=== PATIENT | female | born 1985 | race Caucasian/White ===

== ENCOUNTER 2023-05-01 17:51 | Emergency (ER) | payer OTHER, SELFPAY ==
--- NOTE | ~2023-05-01 | US_ITS ---
EXAMINATION: US PELVIS CLINICAL INFORMATION: Pelvic pain. COMPARISON: Correlation made with CT performed the same day. TECHNIQUE: Ultrasound of the pelvis is performed using both transabdominal and transvaginal transducers along with Doppler. Transvaginal imaging is performed due to inadequate visualization transabdominally. FINDINGS: Uterus: The uterus is anteverted and measures 9.3 x 4.9 x 6.2 cm. cm. Endometrium measures up to 1.8 cm with a bulbous appearance near the fundus.. The uterus is smooth in contour and has normal myometrial echogenicity. No visible fibroid. Adnexa: Both ovaries are visualized. There is normal color flow to the adnexa. There is no ovarian torsion. There is no pelvic ascites or fluid collection. Right ovary measures 2.6 x 1.8 x 1.9 cm. [Right ovarian volume 4.6 mL. Flow is demonstrated within the right ovary. Left ovary measures 4 x 3.5 x 2.9 cm. Left ovary volume 21.26 mL. Flow demonstrated within the left ovary. There is a 3.1 x 2.2 x 3 cm anechoic structure associated with the left ovary. US/US pelvic ovarian doppler IMPRESSION: Thickened endometrium up to 1.8 cm with a bulbous appearance of the endometrium near the fundus. Consider 3 month follow-up as a polyp or submucosal fibroid is a consideration. 3.1 x 2.2 x 3 cm left ovarian cyst.
--- NOTE | ~2023-05-01 | CT_ITS ---
EXAMINATION: CT ABDOMEN AND PELVIS WITH CONTRAST CLINICAL INFORMATION: Right-sided CVA tenderness, right upper quadrant and right lower quadrant tenderness to palpation, nausea COMPARISON: None available. TECHNIQUE: Multidetector volumetric images were obtained from the superior aspect of the liver through the pubic symphysis following administration 85 mL of Omnipaque 350 intravenous contrast. Sagittal and coronal reformatted images were obtained on the technologist's workstation. Oral contrast: No This CT examination was performed using dose optimization techniques as appropriate, variously including the following: *Automated exposure control *Adjustment of mA and/or kV according to patient size (this includes techniques or standardized protocols for targeted exams where dose is matched to indication/reason for exam; i.e. extremities or head) *Use of iterative reconstruction technique DLP: 473 mGy-cm FINDINGS: LUNG BASES: The visualized lung bases are unremarkable. LIVER, GALLBLADDER, AND BILIARY TREE: The liver is normal in size, shape, and attenuation. No focal hepatic lesion or biliary ductal dilatation is present. The gallbladder is unremarkable with no evidence of radiopaque gallstones, gallbladder wall thickening, or obvious pericholecystic inflammatory changes. PANCREAS: Unremarkable. SPLEEN: Unremarkable. ADRENAL GLANDS: Unremarkable. KIDNEYS AND URETERS: The kidneys are normal in size, shape, and attenuation. No hydronephrosis, hydroureter, or calculi seen. Small 6 mm ovoid hypodensity seen with some even smaller scattered hypodensities in the kidneys most likely represent benign Bosniak class I cysts which need no additional imaging or follow-up. No perinephric stranding. BLADDER: Empty but unremarkable GASTROINTESTINAL TRACT: The small and large bowel are unremarkable aside from colonic diverticula without diverticulitis. The appendix is unremarkable. ABDOMINAL WALL: No significant hernia is appreciated. LYMPH NODES: No retroperitoneal lymphadenopathy. Some minimally prominent left inguinal lymph nodes are seen in the largest measuring only 1 cm in maximal short axis dimension. VASCULAR: Unremarkable. PELVIC VISCERA: An anteverted uterus is present. There is fluid in the endometrial canal. There is a rounded 2.1 x 1.7 x 1.4 cm cystic collection within the endometrial canal. The possibility of a gestational sac should be considered. There is a 3.1 cm left ovarian cyst. Some small cystic areas are seen the largest measuring about 0.8 cm within the myometrium. A 3.1 cm cyst is noted in the left ovary. The right ovary is unremarkable. No free intraperitoneal fluid. OSSEOUS STRUCTURES: Unremarkable. CT/CT abdomen pelvis w IV con IMPRESSION: 1. No renal calculi are seen. 2. There is fluid in the endometrial canal with a rounded cystic collection within the endometrial canal. The possibility of a gestational sac should be considered. This could represent a necrotic sob mucosal fibroid. Transabdominal and endovaginal pelvic ultrasound is recommended for further evaluation. 3. Left ovarian cyst. 4. Colonic diverticulosis without diverticulitis. 5. Other incidental findings as described above. Fleischner guidelines were followed.
--- NOTE | ~2023-05-01 | US_ITS ---
EXAMINATION: US PELVIS CLINICAL INFORMATION: Pelvic pain. COMPARISON: Correlation made with CT performed the same day. TECHNIQUE: Ultrasound of the pelvis is performed using both transabdominal and transvaginal transducers along with Doppler. Transvaginal imaging is performed due to inadequate visualization transabdominally. FINDINGS: Uterus: The uterus is anteverted and measures 9.3 x 4.9 x 6.2 cm. cm. Endometrium measures up to 1.8 cm with a bulbous appearance near the fundus.. The uterus is smooth in contour and has normal myometrial echogenicity. No visible fibroid. Adnexa: Both ovaries are visualized. There is normal color flow to the adnexa. There is no ovarian torsion. There is no pelvic ascites or fluid collection. Right ovary measures 2.6 x 1.8 x 1.9 cm. [Right ovarian volume 4.6 mL. Flow is demonstrated within the right ovary. Left ovary measures 4 x 3.5 x 2.9 cm. Left ovary volume 21.26 mL. Flow demonstrated within the left ovary. There is a 3.1 x 2.2 x 3 cm anechoic structure associated with the left ovary. US/US pelvic and transvaginal IMPRESSION: Thickened endometrium up to 1.8 cm with a bulbous appearance of the endometrium near the fundus. Consider 3 month follow-up as a polyp or submucosal fibroid is a consideration. 3.1 x 2.2 x 3 cm left ovarian cyst.
--- NOTE | 2023-05-01 18:08 | ED_ITS ---
HPI - Abdominal Pain General Chief Complaint: Abdominal Pain Stated Complaint: R side flank pain Time Seen by Provider: 05/01/23 21:56 Source: patient Mode of arrival: ambulatory Limitations: no limitations History of Present Illness HPI narrative: 37 yo female hx of ovarian cysts no prior abdominal surgeries who comes in with c/o R sided R mid abdomen and RLQ pain R flank pain starting early this AM with associated nausea, subj fevers, chills. She has some dysuria. No vaginal discharge. This feels very different from her ovarian cyst issues. She tried motrin at home 3pm but threw it up. She notes it hurts to touch abdomen and move. MD elicited complaint: abdominal pain Pertinent past history: other (ovarian cyst) Onset (ago): hour(s) (since this AM) Pain Consistency: constant Location: RLQ and R flank Severity: moderate Quality: aching Radiation: R flank Migration to: no migration Exacerbating factors: movement Relieving factors: nothing Associated symptoms: nausea, vomiting, fever and chills Related Data Previous Rx's Medication Instructions Recorded ondansetron 4 mg disintegrating 4 mg PO Q8H PRN nausea and 05/02/23 tablet vomiting #20 tabs Allergies Allergy/AdvReac Type Severity Reaction Status Date / Time doxycycline Allergy Dizziness Verified 05/01/23 18:09 Review of Systems Review of Systems Constitutional : No Weight loss, pos Fever, pos Chills ENT/Mouth : No sore throat, No Rhinorrhea Eyes: No Swelling, No Redness Cardiovascular : No Chest Pain, No SOB, NoEdema Respiratory : No Cough, No Sputum, No Wheezing Gastrointestinal : Positive Nausea, Positive Vomiting, positive Diarrhea, positive abdominal Pain, No Hematochezia, No Melena Genitourinary : pos Dysuria, No Urinary Frequency, No Hematuria, No Urgency Musculoskeletal : No joint pain, No Myalgias, No Joint Swelling Skin : No Skin Lesions, No rash Neuro : No Weakness, No Numbness, No Dizziness, No Headache Psych : No Anxiety/Panic, No Depression All other systems reviewed and are negative. [facility] Past Medical History Attestation statement: The following information was validated with the patient. Medical History Ovarian cyst Social History Social History (Updated 05/01/23 @ 22:25 by Humera [place], DO) Alcohol intake: current Alcohol intake frequency: holidays/special occasions only Patient Tobacco Use Status: Tobacco use Unknown Smoked in Last 30 Days: Yes Use of substances other than those prescribed or required for medical reasons: No Advance Directives: No Advance Directives Information Provided: No Patient : No Physical Exam ED Vital Signs: Vital Signs - 24 hr 05/01/23 18:09 05/01/23 21:52 05/02/23 01:08 Temperature 98.1 F 97.9 F 98.0 F Pulse Rate 97 78 79 Respiratory Rate 18 17 17 Blood Pressure 121/61 109/67 94/61 Pulse Oximetry 99 98 96 Oxygen Delivery Method Room Air Room Air BMI result Body Mass Index 29.3 Appearance: Alert. Oriented X3. No acute distress. Eyes: Pupils equal, round and reactive to light. ENT: Pharynx normal. Neck: Normal inspection. Neck supple. CVS: Normal heart rate and rhythm. Pulses normal. Respiratory: No respiratory distress. Breath sounds normal. Abdomen: Soft and moderate RLQ pain with voluntary guarding Skin: Skin warm and dry. Normal skin color. Normal skin turgor. Extremities: No lower extremity edema. No calf ttp Neuro: Oriented X 3. No motor deficit. No sensory deficit. Course Course Course Narrative: RME: 37yo F w/PMHx ovarian cysts c/o right flank pain radiating to RLQ w/assoc nausea, chills x 5AM today Abdomen soft with RUQ/RLQ and right CVA tenderness Labs, UA, , CT AP ordered ordered Full HPI, ROS and PE to be performed by primary ED provider. Medical Decision Making Medical Decision Making [facility] Narrative: 37 yo female with worsening RLQ and R flank pain all day with fevers, chills dysuria at this time will need labs, IVF, IV toradol for pain and CT scan to assess for renal colic, appendicitis, diverticulitis, if negative may need US to assess ovary for any signs of torsion though patient feels this is different from her cysts. Differential Diagnosis Differential Diagnoses: The differential diagnosis associated with the presentation includes ovarian cyst, renal colic, appendicitis Admission/Observation Consideration of admission/observation: Escalation of care including admission/observation considered no acute findings on CT scan or US at this time can be DC home - feeling better Lab Data [facility] Lab Attestation statement: I reviewed the patient's lab results. 05/01/23 19:24 05/01/23 19:24 Labs: Lab Results 05/01/23 05/01/23 05/01/23 Range/Units 19:24 22:04 22:05 WBC 13.4 H (4.8-10.8) X10*3/uL RBC 4.80 (4.20-5.50) X10*6/uL Hgb 10.0 L (12.0-16.0) g/dl Hct 32.8 L (37.0-47.0) % MCV 68.3 L (80.0-98.0) fL MCH 20.8 L (27.0-33.0) pg MCHC 30.5 L (31.0-35.0) g/dl RDW 21.1 H (11.0-16.0) % Plt Count 479 H (160-400) X10*3/uL MPV 7.6 L (9.4-12.3) fL Immature Gran % (Auto) 0.6 H (0.0-0.4) % Neut % (Auto) 63.4 (45-73) % Lymph % (Auto) 28.4 (20-40) % [place] % (Auto) 5.8 (2-11) % Eos % (Auto) 1.4 (0-4) % Baso % (Auto) 0.4 (0-2) % Lymph # (Auto) 3.8 (1.2-4.9) X10*3/uL [place] # (Auto) 0.8 (0.1-1.2) X10*3/uL Eos # (Auto) 0.2 (0.0-0.4) X10*3/uL Baso # (Auto) 0.1 (0.0-0.2) X10*3/uL Abs Immat Gran (auto) 0.08 H (0.00-0.03) X10*3/uL Absolute Neuts (auto) 8.5 H (2.0-8.3) x10*3/uL Absolute Nucleated RBC 0.000 (0.0-0.012) X10*3/uL Nucleated RBC % (auto) 0.0 (0.0-0.2) /100WBC Sodium 141 (135-145) mmol/L Potassium 3.8 (3.3-5.1) mmol/L Chloride 108 (96-108) mmol/L Carbon Dioxide 24 (22-29) mmol/L Anion Gap 13 (12-20) BUN 4 L (9-16) mg/dL Creatinine 0.71 (0.5-1.4) mg/dL Estim Creat Clear Calc 97.2 Estimated GFR > 60 Random Glucose 93 (60-115) mg/dL Calcium 9.8 (8.4-10.2) mg/dL Magnesium 2.2 (1.6-2.6) mg/dL Total Bilirubin 0.2 (0.0-1.0) mg/dL Direct Bilirubin < 0.2 (0.0-0.5) mg/dL AST 15 (5-31) U/L ALT 9 (0-31) U/L Alkaline Phosphatase 64 (39-117) U/L Total Protein 7.5 (6.5-8.0) g/dL Albumin 4.6 (3.5-5.0) g/dL Lipase 44 (8-78) U/L Beta HCG, Quant < 2 mIU/mL Urine Color Dark Yellow Urine Appearance Cloudy Urine pH 5.5 (5.0-9.0) Ur Specific [place] 1.025 (1.005-1.025) Urine Protein Trace (Neg-Trace) mg/dL Urine Glucose (UA) Negative (Negative) mg/dL Urine Ketones 15 (Negative) mg/dL Urine Blood Negative (Negative) Urine Nitrite Negative (Negative) Ur Leukocyte Esterase Negative (Negative) Urine Test NEGATIVE (NEGATIVE) Independent Interpretation I performed an independent interpretation of an: Ultrasound (cyst no torsion) and CT Scan (no appendicitis) Radiology Impression Discussion of test interpretation with radiology: I discussed test interpretation with the radiologist and I have reviewed the radiologist's reading. Prescription Management I considered prescription management with: Other (declined zofran) Medications Administered Discontinued Medications Generic Name Dose Route Start Last Admin Trade Name Freq PRN Reason Stop Dose Admin Sodium Chloride 1,000 mls @ 999 mls/hr 05/01/23 22:15 05/01/23 22:33 Ns IV 05/01/23 23:15 999 mls/hr .Q1H1M VENECIA Administration Iohexol 100 ml 05/01/23 22:35 05/01/23 22:36 Iohexol 350 Mg/Ml 100 Ml Infus..Btl IV 05/01/23 22:36 85 ml ONCE ONE Administration Ketorolac Tromethamine 15 mg 05/01/23 22:05 05/01/23 22:33 Ketorolac Tromethamine 15 Mg/Ml Vial IVPUSH 05/01/23 22:06 15 mg ONCE ONE Administration Ondansetron HCl 4 mg 05/01/23 22:05 05/01/23 22:33 Ondansetron Hcl 4 Mg/2 Ml Vial IVPUSH 05/01/23 22:06 4 mg ONCE ONE Administration Discharge Plan Discharge Clinical Impression: Abdominal pain Qualifiers: Abdominal location: right lower quadrant Qualified Code(s): R10.31 - Right lower quadrant pain Patient Disposition: Home, Self-Care Instructions: Abdominal Pain (ED) Additional Instructions: follow up with your OBGYN return for fevers, vomiting, worsening pain or any other concerns. you were slightly anemic at hemoglobin 10 please make sure your OB follows this Both ovaries are visualized. There is normal color flow to the adnexa. There is no ovarian torsion. There is no pelvic ascites or fluid collection. Right ovary measures 2.6 x 1.8 x 1.9 cm. [Right ovarian volume 4.6 mL. Flow is demonstrated within the right ovary. Left ovary measures 4 x 3.5 x 2.9 cm. Left ovary volume 21.26 mL. Flow demonstrated within the left ovary. There is a 3.1 x 2.2 x 3 cm anechoic structure associated with the left ovary. US/US pelvic and transvaginal IMPRESSION: Thickened endometrium up to 1.8 cm with a bulbous appearance of the endometrium near the fundus. Consider 3 month follow-up as a polyp or submucosal fibroid is a consideration. 3.1 x 2.2 x 3 cm left ovarian cyst. Prescriptions: New ondansetron 4 mg tablet,disintegrating 4 mg PO Q8H PRN (Reason: nausea and vomiting) Qty: 20 0RF
[2023-05-01 18:09] VITALS: BP 121/61; PULSE 97; RESP 18; TEMP 36.7; O2SAT 99; BMI 29.3
[2023-05-01 19:29] LABS: MANUAL DIFF FLAG NO
[2023-05-01 19:36] LABS: Basophils Absolute Auto 0.1 X10*3/uL (0.0-0.2); Basophils Percent Auto 0.4 % (0-2); Eosinophils Absolute Auto 0.2 X10*3/uL (0.0-0.4); Eosinophils Percent Auto 1.4 % (0-4); Hematocrit 32.8 % (37.0-47.0); Imm Gran Abs Auto 0.08 X10*3/uL (0.00-0.03); Imm Gran Pct Auto 0.6 % (0.0-0.4); Lymphocytes Absolute Auto 3.8 X10*3/uL (1.2-4.9); Lymphocytes Percent Auto 28.4 % (20-40); Mean Corpuscular HGB Conc 30.5 g/dl (31.0-35.0); Mean Corpuscular Hemoglobin 20.8 pg (27.0-33.0); Mean Corpuscular Volume 68.3 fL (80.0-98.0); Mean Platelet Volume 7.6 fL (9.4-12.3); Monocytes Absolute Auto 0.8 X10*3/uL (0.1-1.2); Monocytes Percent Auto 5.8 % (2-11); Neutrophils Absolute Auto 8.5 x10*3/uL (2.0-8.3); Neutrophils Percent Auto 63.4 % (45-73); Platelet Count 479 X10*3/uL (160-400); Red Cell Distribution Width 21.1 % (11.0-16.0); White Blood Count 13.4 X10*3/uL (4.8-10.8)
[2023-05-01 19:44] LABS: Alanine Aminotransferase 9 U/L (0-31); Albumin Level 4.6 g/dL (3.5-5.0); Alkaline Phosphatase 64 U/L (39-117); Anion Gap 13 (12-20); Aspartate Amino Transferase 15 U/L (5-31); Bilirubin Direct < 0.2 mg/dL (0.0-0.5); Bilirubin Total 0.2 mg/dL (0.0-1.0); Blood Urea Nitrogen 4 mg/dL (9-16); Calcium 9.8 mg/dL (8.4-10.2); Carbon Dioxide 24 mmol/L (22-29); Chloride 108 mmol/L (96-108); Creatinine Clr Calc Pharmacy 97.2; Estimated Glomerular Filt Rate > 60; Glucose Random 93 mg/dL (60-115); Lipase 44 U/L (8-78); Magnesium 2.2 mg/dL (1.6-2.6); Potassium 3.8 mmol/L (3.3-5.1); Sodium 141 mmol/L (135-145); Total Protein 7.5 g/dL (6.5-8.0)
[2023-05-01 21:52] VITALS: BP 109/67; PULSE 78; RESP 17; TEMP 36.6; O2SAT 98
[2023-05-01 22:14] LABS: Appearance Urine Cloudy; Color Urine Dark Yellow; Glucose Urine UA Negative (Negative); Leukocyte Esterase Urine Negative (Negative); Nitrite Urine Negative (Negative); PH 5.5 (5.0-9.0); Specific Gravity - Urine 1.025 (1.005-1.025); Urine Blood Negative (Negative); Urine Ketones 15 mg/dL (Negative); Urine Protein Trace mg/dL (Neg-Trace)
[2023-05-01 22:16] LABS: UPreg QC Valid YES; Urine Pregnancy NEGATIVE (NEGATIVE)
[2023-05-01] MEDS: Ketorolac Tromethamine 15 MG/ML VIAL IVPUSH (22:33)
[2023-05-01] MEDS: ondansetron HCL 4 MG/2 ML VIAL IVPUSH (22:33)
[2023-05-01] MEDS: 0.9 % Sodium Chloride 1,000 ML 999 ML IV (22:33)
[2023-05-01] MEDS: iohexoL 350 MG/ML 100 ML INFUS..BTL IV (22:36)
--- NOTE | 2023-05-01 22:39 | PC.NURSE ---
Patient alert and oriented. Pt endorsing RLQ pain that began this morning. PT was woken up from the pain. Pt used heating pad and ice through out the day. Pt had N?V that began around 1pm. She is not on any control and her period is irregular- last menstrual period was in the end of january. Labs drawn in triage. IV access in left AC line is patent and intact. PT taken down to CT scan with contrast once returned medications were adminsitered as per oct. IV fluids currently infusing. Call miller within reach. Plan of care is ongoing
[2023-05-02] LABS: HCG Quantitative < 2 mIU/mL
[2023-05-02 01:08] VITALS: BP 94/61; PULSE 79; RESP 17; TEMP 36.7; O2SAT 96
--- NOTE | 2023-05-02 02:22 | PC.NURSE ---
Discharge pt per Viry Chris request, reviewed discharge instructions with pt. pt verbalized understanding, no sign of distress. Notified FRANCISCA Nolan.
== END 2023-05-02 02:24 | disposition home or self-care (01) ==
PROVIDERS: Physician Assistant; Emergency Provider Emergency Medicine; PCP Family Medicine
DX: R10.31 Right lower quadrant pain (principal); R11.0 Nausea; R30.0 Dysuria; R50.9 Fever, unspecified; F17.210 Nicotine dependence, cigarettes, uncomplicated
CPT/HCPCS: 36415; 74177; 76830; 76856; 80048; 80076; 81003; 81025; 83690; 83735; 84702; 85025; 93975; 96374; 96375; 99284; J1885; J2405; Q9967

== ENCOUNTER 2023-05-31 13:02 | Emergency (ER) | payer OTHER, SELFPAY ==
[2023-05-31 13:40] VITALS: BP 111/62; PULSE 115; RESP 18; TEMP 36.6; O2SAT 98; BMI 29.3
--- NOTE | 2023-05-31 13:53 | ED_ITS ---
HPI - General Adult General Chief complaint: Vaginal Bleeding Stated complaint: extreme vaginal bleeding, right side hard Related Data Previous Rx's Medication Instructions Recorded ondansetron 4 mg disintegrating 4 mg PO Q8H PRN nausea and 05/02/23 tablet vomiting #20 tabs oxycodone 5 mg capsule 5 mg PO TID PRN pain 3 days #9 caps 06/28/23 Allergies Allergy/AdvReac Type Severity Reaction Status Date / Time doxycycline Allergy Dizziness Verified 06/28/23 16:58 [facility] Past Medical History Medical History Ovarian cyst Social History Social History (Updated 05/01/23 @ 22:25 by Humera Baires DO) Alcohol intake: current Alcohol intake frequency: holidays/special occasions only Patient Tobacco Use Status: Tobacco use Unknown Advance Directives: No Physical Exam ED Vital Signs: Vital Signs - 24 hr 05/31/23 13:40 Temperature 98 F Pulse Rate 115 H Respiratory Rate 18 Blood Pressure 111/62 Pulse Oximetry 98 Oxygen Delivery Method Room Air BMI result Body Mass Index 29.3 Course Course Course Narrative: RME- 37-year-old female presents for evaluation of heavy vaginal bleeding since Sunday. She feels this is much worse than her typical menstrual cycle and she is feeling lightheaded. Plan for labs Medical Decision Making Lab Data 05/31/23 14:28 05/31/23 14:28 Labs: Lab Results 05/31/23 Range/Units 14:28 WBC 9.5 (4.8-10.8) X10*3/uL RBC 4.38 (4.20-5.50) X10*6/uL Hgb 9.3 L (12.0-16.0) g/dl Hct 31.1 L (37.0-47.0) % MCV 71.0 L (80.0-98.0) fL MCH 21.2 L (27.0-33.0) pg MCHC 29.9 L (31.0-35.0) g/dl RDW 20.8 H (11.0-16.0) % Plt Count 464 H (160-400) X10*3/uL MPV 8.2 L (9.4-12.3) fL Immature Gran % (Auto) 0.2 (0.0-0.4) % Neut % (Auto) 57.6 (45-73) % Lymph % (Auto) 32.6 (20-40) % [place] % (Auto) 6.0 (2-11) % Eos % (Auto) 2.9 (0-4) % Baso % (Auto) 0.7 (0-2) % Lymph # (Auto) 3.1 (1.2-4.9) X10*3/uL [place] # (Auto) 0.6 (0.1-1.2) X10*3/uL Eos # (Auto) 0.3 (0.0-0.4) X10*3/uL Baso # (Auto) 0.1 (0.0-0.2) X10*3/uL Abs Immat Gran (auto) 0.02 (0.00-0.03) X10*3/uL Absolute Neuts (auto) 5.4 (2.0-8.3) x10*3/uL Absolute Nucleated RBC 0.000 (0.0-0.012) X10*3/uL Nucleated RBC % (auto) 0.0 (0.0-0.2) /100WBC PT 11.5 (11.1-13.3) SEC INR 0.9 (0.9-1.1) Sodium 139 (135-145) mmol/L Potassium 3.6 (3.3-5.1) mmol/L Chloride 106 (96-108) mmol/L Carbon Dioxide 23 (22-29) mmol/L Anion Gap 14 (12-20) BUN 8 L (9-16) mg/dL Creatinine 0.75 (0.5-1.4) mg/dL Estim Creat Clear Calc 92.1 Estimated GFR > 60 Random Glucose 101 (60-115) mg/dL Calcium 9.5 (8.4-10.2) mg/dL Urine Color Yellow Urine Appearance Clear Urine pH 6.0 (5.0-9.0) Ur Specific [place] 1.025 (1.005-1.025) Urine Protein Negative (Neg-Trace) mg/dL Urine Glucose (UA) Negative (Negative) mg/dL Urine Ketones Trace (Negative) mg/dL Urine Blood Negative (Negative) Urine Nitrite Negative (Negative) Ur Leukocyte Esterase Negative (Negative) Urine Test NEGATIVE (NEGATIVE) Blood Type A Positive Antibody Screen NEGATIVE Discharge Plan Discharge Clinical Impression: Vaginal bleeding Patient Disposition: Left W/O Completing Treatment Prescriptions: No Action ondansetron 4 mg tablet,disintegrating 4 mg PO Q8H PRN (Reason: nausea and vomiting) Qty: 20 0RF oxycodone 5 mg capsule 5 mg PO TID PRN (Reason: pain) 3 Days Qty: 9 0RF Rx Instructions: Partial Fill upon patient request. Discharge Date/Time: 05/31/23 18:38
[2023-05-31 14:37] LABS: MANUAL DIFF FLAG NO
[2023-05-31 14:42] LABS: Appearance Urine Clear; Basophils Absolute Auto 0.1 X10*3/uL (0.0-0.2); Basophils Percent Auto 0.7 % (0-2); Color Urine Yellow; Eosinophils Absolute Auto 0.3 X10*3/uL (0.0-0.4); Eosinophils Percent Auto 2.9 % (0-4); Glucose Urine UA Negative (Negative); Hematocrit 31.1 % (37.0-47.0); Hemoglobin 9.3 g/dl (12.0-16.0); Imm Gran Abs Auto 0.02 X10*3/uL (0.00-0.03); Imm Gran Pct Auto 0.2 % (0.0-0.4); Leukocyte Esterase Urine Negative (Negative); Lymphocytes Absolute Auto 3.1 X10*3/uL (1.2-4.9); Lymphocytes Percent Auto 32.6 % (20-40); Mean Corpuscular HGB Conc 29.9 g/dl (31.0-35.0); Mean Corpuscular Hemoglobin 21.2 pg (27.0-33.0); Mean Platelet Volume 8.2 fL (9.4-12.3); Monocytes Absolute Auto 0.6 X10*3/uL (0.1-1.2); Neutrophils Absolute Auto 5.4 x10*3/uL (2.0-8.3); Neutrophils Percent Auto 57.6 % (45-73); Nitrite Urine Negative (Negative); Platelet Count 464 X10*3/uL (160-400); Red Blood Count 4.38 X10*6/uL (4.20-5.50); Red Cell Distribution Width 20.8 % (11.0-16.0); Specific Gravity - Urine 1.025 (1.005-1.025); Urine Blood Negative (Negative); Urine Ketones Trace mg/dL (Negative); Urine Pregnancy NEGATIVE (NEGATIVE); Urine Protein Negative (Neg-Trace); White Blood Count 9.5 X10*3/uL (4.8-10.8)
[2023-05-31 14:43] LABS: UPreg QC Valid YES
[2023-05-31 14:46] LABS: INTERNATIONAL NORM RATIO 0.9 (0.9-1.1); Prothrombin Time 11.5 SEC (11.1-13.3)
[2023-05-31 14:59] LABS: Anion Gap 14 (12-20); Blood Urea Nitrogen 8 mg/dL (9-16); Calcium 9.5 mg/dL (8.4-10.2); Carbon Dioxide 23 mmol/L (22-29); Chloride 106 mmol/L (96-108); Creatinine Clr Calc Pharmacy 92.1; Estimated Glomerular Filt Rate > 60; Glucose Random 101 mg/dL (60-115); Potassium 3.6 mmol/L (3.3-5.1); Sodium 139 mmol/L (135-145)
== END 2023-05-31 18:38 | disposition left against medical advice (07) ==
PROVIDERS: Emergency Provider Emergency Medicine; PCP Family Medicine
DX: N93.9 Abnormal uterine and vaginal bleeding, unspecified (principal)
CPT/HCPCS: 36415; 80048; 81003; 81025; 85025; 85610; 86850; 86900; 86901; 99282; 99283

== ENCOUNTER 2023-06-28 16:42 | Emergency (ER) | payer OTHER, SELFPAY ==
[2023-06-28 16:59] VITALS: BP 107/39; PULSE 113; RESP 18; TEMP 36.5; O2SAT 100; BMI 27.6
--- NOTE | 2023-06-28 17:09 | ED_ITS ---
HPI - General Adult General Chief complaint: Dental/Oral Stated complaint: Tooth pain Time Seen by Provider: 06/28/23 17:07 Source: patient Mode of arrival: ambulatory Limitations: no limitations History of Present Illness HPI narrative: 37 yold female presents to the ED for right lower cracked molar tooth pain radiating to right ear with headache. patient admits to poor denititision. patient denies any neck swelling, drooling, fever, chills, recent trauma, or recent dental work. patient denies any chest pain or shortnes of breath. Patient has been on clindamycin and motrin the past two days Related Data Previous Rx's Medication Instructions Recorded ondansetron 4 mg disintegrating 4 mg PO Q8H PRN nausea and 05/02/23 tablet vomiting #20 tabs oxycodone 5 mg capsule 5 mg PO TID PRN pain 3 days #9 caps 06/28/23 Allergies Allergy/AdvReac Type Severity Reaction Status Date / Time doxycycline Allergy Dizziness Verified 06/28/23 16:58 Review of Systems 2 Review of Systems: right lower molars pain radiating to right ear and right headache Yes all other systems are reviewed and are negative [facility] Past Medical History Medical History Ovarian cyst Social History Social History (Updated 05/01/23 @ 22:25 by Humera Baires DO) Alcohol intake: current Alcohol intake frequency: holidays/special occasions only Patient Tobacco Use Status: Tobacco use Unknown Advance Directives: No Physical Exam ED Vital Signs: Vital Signs - 24 hr 06/28/23 16:59 Temperature 97.7 F Pulse Rate 113 H Respiratory Rate 18 Blood Pressure 107/39 L Pulse Oximetry 100 Oxygen Delivery Method Room Air BMI result Body Mass Index 27.6 Const General: cooperative, healthy appearing, comfortable, no acute distress, well developed, alert and awake Orientation/consciousness: oriented to person, oriented to place, oriented to time and patient oriented x3 HENMT Other: Negative for any facial swelling, neck swelling, redness, photphobia, rash, or redness. negative for drooling or change in voice. Head: Yes normal to inspection, Yes No palpable skull fracture present, Yes normocephalic, Yes atraumatic, No abrasion and No laceration Ears: hearing grossly normal bilaterally, external ears normal, TM's normal bilaterally, TM normal on the right, TM normal on the left, EAC's normal, mastoids normal and no periauricular adenopathy Teeth image: 2 1. both tooth are cracked with yellow pus collection in the middle. negative for any gum swelling, gum redness, trismus, drooling, or uvula swwelling. Throat: Yes posterior oropharynx normal, Yes tonsils normal and Yes uvula midline Eyes General: appearance normal, both eyes and all related structures Neck Neck: Yes normal visual inspection, Yes full ROM, Yes no lymphadenopathy, Yes no meningeal signs, Yes trachea midline, Yes supple, No anterior neck swelling and No tender Chest Chest palpation & inspection: normal inspection of the chest and normal palpation of entire chest wall Resp Effort & Inspection: normal respiratory effort and able to speak in complete sentences Auscultation: clear to auscultation bilaterally Cardio Jugular venous distension: no JVD Heart sounds: S1 normal heart sound present and S2 normal heart sound present GI Inspection: Yes normal to inspection and No abdominal wall ecchymosis Palpation (GI): Soft to palpation, not firm, nontender, no guarding and not rigid General: Yes no CVA tenderness Back/Spine/Pelvis Back: no CVA tenderness and No back tenderness Skin General skin exam: no rashes or lesions noted, elasticity normal and turgor normal Neuro General: oriented to person, oriented to place, oriented to time, patient oriented x3, gait normal, tone normal, moves all extremities, Normal light touch and pain sensation, no meningeal signs and no focal motor deficits Extrem General: Yes normal to inspection, Yes full ROM and Yes capillary refill normal Psych Appearance: grossly normal, well kempt and not disheveled Medical Decision Making Medical Decision Making MDM Narrative: 37 yold female presents to the ED for right two lower molar cracked tooth radiating to the right hear and headache. Patient denies any facial swelling, neck pain, redness, chest pain, or shortness of breath. Patient tachycardic due to pain. Patient discharged with pain meds. Negative for signs of peritonsillar abscess, stephanie angina, retorpharyngeal abscess Differential Diagnosis Differential Diagnoses: The differential diagnosis associated with the presentation includes (toothache, dental infection, peritonsiilar abscess, stephanie angina, retropharyngeal abscess) Admission/Observation Consideration of admission/observation: Escalation of care including admission/observation considered Prescription Management I considered prescription management with: Pain Medication Discharge Plan Discharge Clinical Impression: Toothache Patient Disposition: Home, Self-Care Instructions: Toothache (ED) Additional Instructions: Return to the ED for facial swelling, neck swelling, fever, chills, chest pain, shorrntess of breath, worsening dental pain, ear pain, drooling, change in voice, or any other concerning symptoms. Recommend follow up wtih Your dentists. both lower cracked tooth look infected. continuing using clindamycin and motrin as prescribedl. Prescriptions: New oxycodone 5 mg capsule 5 mg PO TID PRN (Reason: pain) 3 Days Qty: 9 0RF Rx Instructions: Partial Fill upon patient request. No Action ondansetron 4 mg tablet,disintegrating 4 mg PO Q8H PRN (Reason: nausea and vomiting) Qty: 20 0RF Stand Alone Forms: Work/School Release Interventions: ED Discharge Assessment Last Done: 06/28/23 17:19 Discharge Date/Time: 06/28/23 17:19 Print Language: [place]
== END 2023-06-28 17:19 | disposition home or self-care (01) ==
PROVIDERS: Emergency Provider Emergency Medicine
DX: K08.89 Other specified disorders of teeth and supporting structures (principal); K03.81 Cracked tooth; R00.0 Tachycardia, unspecified
CPT/HCPCS: 99282; 99283